=== PATIENT | female | born 1995 | race Caucasian/White ===

== ENCOUNTER 2018-03-18 08:45 | Outpatient (CLI) | payer OTHER | END 2018-03-18 08:46 | disposition home or self-care (01) | LOC: SONOGRAMA 08:45 | DX: R22.2 Localized swelling, mass and lump, trunk (principal) ==

== ENCOUNTER 2020-07-11 10:03 | Outpatient (CLI) | payer OTHER | END 2020-07-11 10:11 | disposition home or self-care (01) | LOC: SONOGRAMA 10:03 | PROVIDERS: ATTEND Pathology Anatomic Pathology & Clinical Pathology | DX: E04.2 Nontoxic multinodular goiter (principal) ==